=== PATIENT | female | born 1970 | race Caucasian/White ===

== ENCOUNTER → 2018-05-21 15:04 | Outpatient (POV) | payer BC, SELFPAY | PROVIDERS: Visit Provider Physician Assistant | DX: Z00.00 Encounter for general adult medical examination without abnormal findings (principal) ==

== ENCOUNTER → 2021-01-05 15:09 | Outpatient (POV) | payer BC, SELFPAY | PROVIDERS: Visit Provider Dermatology | DX: Z00.00 Encounter for general adult medical examination without abnormal findings (principal) ==

== ENCOUNTER 2022-03-01 11:27 | Emergency (ER) | payer BC, SELFPAY ==
[2022-03-01 11:48] VITALS: BP 154/92; PULSE 88; RESP 17; TEMP 37.1; O2SAT 97; BMI 40.3
--- NOTE | 2022-03-01 11:48 | HMH.EDUTC ---
[facility] [place] Disposition Clinical Impression: Otitis media Qualifiers: Otitis media type: suppurative Chronicity: acute Laterality: bilateral Recurrence: non-recurrent Spontaneous tympanic membrane rupture: without spontaneous rupture Qualified Code(s): H66.003 - Acute suppurative otitis media without spontaneous rupture of ear drum, bilateral Disposition: Home, Self-Care Condition on Discharge: Good Instructions: How to Instill Ear Drops, Middle Ear Infection Additional Instructions: Drink plenty of fluids. Take tylenol or ibuprofen for pain or fever. Take the medications as directed. Follow up with your regular doctor. GO TO THE ER FOR ANY WORSENING SYMPTOMS Prescriptions: methylPREDNISolone [Medrol] 4 mg PO DIRECTED 6 Days #21 packet Transmission Status: Received by [id number] Neomycin/Polymyxin B Sulf/Hc [Xfopxssk-Rmwoeaiuz-OE Otic Susp 10mL] 3 drops OT TID 7 Days #5 ml Transmission Status: Received by [id number] Cefdinir [Omnicef 300mg Capsule] 300 mg PO BID #20 cap Transmission Status: Received by [id number] Referrals: Vamshi Gutierrez [Primary Care Provider] - Time of Disposition: 12:30 Medical Decision Making - Medical Records Medical records reviewed: No: I reviewed the patient's medical records. - [place] Inquiry Pt receiving controlled substance: No Vital Signs: 03/01/22 11:48 03/01/22 12:31 Temperature 98.8 F 98.8 F Temperature Source Oral Pulse Rate 88 Pulse Rate [Left Radial] 88 Respiratory Rate 17 17 Blood Pressure 154/92 H Blood Pressure [Right Arm] 154/92 H Blood Pressure Mean [Right Arm] 112 02 Sat by Pulse Oximetry 97 - Lab Data Lab results reviewed: Yes: I reviewed the patient's lab results. [facility] [place] HPI - General Stated complaint: bilateral ear ache Time Seen by Provider: 03/01/22 11:48 - History of Present Illness Provider Complaint: She c/o bilateral ear pain and feeling bad for the past 4 days - Related Data Previous Rx's Medication Instructions Recorded Cefdinir [Omnicef 300mg Capsule] 300 mg PO BID #20 cap 03/01/22 Neomycin/Polymyxin B Sulf/Hc 3 drops OT TID 7 Days #5 ml 03/01/22 [Tbkrqpui-Oovilifsi-PR Otic Susp 10mL] methylPREDNISolone [Medrol] 4 mg PO DIRECTED 6 Days #21 03/01/22 packet Allergies Allergy/AdvReac Type Severity Reaction Status Date / Time No Known Allergies Allergy Verified 03/01/22 11:50 [facility] History - Hepatitis A Screen Attestation statement:: This patient has been screened for Hepatitis A risk factors. I have reviewed the patient's past medical history: Yes ROS Obtained: Yes All systems reviewed & no additional complaints - Constitutional Constitutional: Reports as per HPI - Eyes Eyes: Denies eye discharge - ENT Ears, Nose, Mouth, and Throat: Reports as per HPI - Cardiovascular Cardiovascular: Denies chest pain - Respiratory Respiratory: Denies chest congestion, Reports cough Physical Exam - General General appearance: alert, in no apparent distress - Head Head exam: atraumatic, normocephalic, normal inspection - Eye Eye exam: Present: normal appearance, PERRL, EOMI - ENT ENT exam: Present: mucous membranes moist, normal external ear exam - Expanded ENT Exam TM/Canal exam: Bilateral TM: erythema, bulging, effusion Nose exam: Absent: sinus tenderness Nasal speculum exam: Bilateral: normal Mouth exam: Present: normal external inspection, tongue normal. Absent: drooling Throat exam: Present: tonsillar erythema, tonsillomegaly - Neck Neck exam: Present: normal inspection, full ROM, trachea midline. Absent: meningismus, lymphadenopathy - Chest Chest inspection: Present: normal inspection, symmetric chest wall rise. Absent: tenderness - Respiratory Respiratory exam: Present: normal lung sounds bilaterally. Absent: respiratory distress - Cardiovascular Cardiovascular exam: Present: regular rate, normal rhythm. Absent: JVD -
[2022-03-01 12:31] VITALS: BP 154/92; PULSE 88; RESP 17; TEMP 37.1
== END 2022-03-01 12:32 | disposition home or self-care (01) ==
PROVIDERS: Emergency Provider Nurse Practitioner Family; PCP Pediatrics
DX: H66.003 Acute suppurative otitis media without spontaneous rupture of ear drum, bilateral (principal)
CPT/HCPCS: 99212; G0463